=== PATIENT | female | born 1980 | race Asian ===

== ENCOUNTER 2017-07-22 04:20 | Emergency (ER) | payer OTHER ==
[~2017-07-22] VITALS: Ht 152.4 cm; Wt 39.5 kg
[2017-07-22] MEDS ORDERED: NORCO 5-325 TA1 EACH PO (06:53)
== END 2017-07-22 07:05 | disposition home or self-care (01) ==
LOC: ED 04:20
DX: R10.9 Unspecified abdominal pain (principal); Z88.8 Allergy status to other drugs, medicaments and biological substances
CPT/HCPCS: 74177; 80053; 81001; 83690; 84703; 85025; 96361; 96374; 96375; 99284; J1170; J2405; J7030; Q9967